=== PATIENT | female | born 1975 | race American Indian/Alaskan Native ===

== ENCOUNTER 2016-11-21 16:44 | Emergency (ER) | payer SELFPAY ==
[2016-11-21] MEDS ORDERED: CATAPRES ONE (18:24)
[2016-11-21] MEDS ORDERED: CATAPRES PO ONE (18:34)
[2016-11-21 19:32] LABS: Bilirubin,Urine NEG (Negative); Blood,Urine NEG (Negative); Ketones,Urine 20 mg/dL (Negative); Leukocyte Esterase,Urine NEG (Negative); Mucus,Urine FEW /HPF; Nitrite,Urine NEG (Negative); Protein,Urine <15 mg/dL mg/dL (Negative); Urobilinogen,Urine < 2.0 mg/dL (<2.0)
[2016-11-21 19:35] LABS: Basophils % (Auto) 1.1 % (0.0-1.8); Eosinophils % (Auto) 0.9 % (0.0-4.3); Hematocrit 38.6 % (30.3-42.9); Hemoglobin 12.9 gm/dl (10.1-14.3); Mean Corpuscular HGB Conc 34 % (30-34); Mean Corpuscular Hemoglobin 28 pg (28-32); Mean Corpuscular Volume 83 fl (79-97); Platelet Count 128 K/mm3 (140-440); Red Blood Count 4.68 M/mm3 (3.65-5.03); Red Cell Distribution Width 14.1 % (13.2-15.2); White Blood Count 7.1 K/mm3 (4.5-11.0)
[2016-11-21 19:48] LABS: INR 0.85 (0.87-1.13)
[2016-11-21 19:49] LABS: Partial Thromboplastin Time 27.2 Sec. (24.2-36.6)
[2016-11-21 19:53] LABS: Anion Gap 21 mmol/L; Blood Urea Nitrogen 15 mg/dL (7-17); Calcium 9.3 mg/dL (8.4-10.2); Carbon Dioxide 25 mmol/L (22-30); Glucose 378 mg/dL (65-100); Potassium 4.1 mmol/L (3.6-5.0); Sodium 127 mmol/L (137-145)
--- NOTE | 2016-11-21 20:29 | Cat Scan Report ---
FINAL REPORT EXAM: CT HEAD/BRAIN WO CON HISTORY: headache / htn / dizzy TECHNIQUE: CT imaging acquired through the head without intravenous contrast. Transaxial reformations are provided. PRIORS: None. FINDINGS: The ventricles, cisterns and sulci are normal. No intraparenchymal or extra-axial mass, hemorrhage, or mass effect. Wu and white-matter differentiation is normal. Normal spherical shape of the globes. Paranasal sinuses and mastoid air cells are clear. No skull or facial fracture visualized. IMPRESSION: No acute intracranial abnormality. Consider MRI follow-up as warranted.
[2016-11-22] MEDS ORDERED: NACL 0.9% 1000 ML 1,000 ML IV ONE (06:29)
--- NOTE | 2016-11-22 06:30 | Emergency Department Report ---
HPI - General Chief Complaint: High BP Time Seen by Provider: 11/22/16 06:18 - HPI HPI: Room 5 The patient is a 41-year-old female presenting with a chief complaint of hypertension, hyperglycemia and headache. Patient states since yesterday she has had a frontal headache and felt weak. Patient states she's been compliant with a blood pressure medication sensation noticed blood pressures been elevated. Patient states she was recently diagnosed with diabetes a few days ago and started on insulin by her primary doctor. Patient states she has been compliant with her medication. Location: [see above] Duration: [see above] Quality: Headache Severity: Moderate Modifying factors: [see above] Context: [see above] Mode of transportation: Unknown ED Past Medical Hx - Past Medical History Hx Hypertension: Yes Hx Diabetes: Yes - Surgical History Past Surgical History?: No - Family History Family history: no significant - Social History Smoking Status: Never Smoker Substance Use Type: None - Medications Home Medications: Home Medications Medication Instructions Recorded Confirmed Last Taken Type Atenolol [Tenormin] 25 mg PO DAILY 11/21/16 11/21/16 11/21/16 08:00 History Insulin Glargine [Lantus] 10 units SQ BID 11/21/16 11/21/16 11/21/16 09:00 History Triamter/Hctz 37.5-25 mg 1 tab PO QDAY 11/21/16 11/21/16 11/19/16 08:00 History [Maxzide-25] ED Review of Systems ROS: Stated complaint: ELEVATED SUGAR/DIZZINESS Other details as noted in HPI Comment: All other systems reviewed and negative Constitutional: weakness. denies: chills, fever Eyes: denies: eye pain, eye discharge, vision change ENT: denies: ear pain, throat pain Respiratory: denies: cough, shortness of breath, wheezing Cardiovascular: palpitations Endocrine: no symptoms reported Gastrointestinal: denies: abdominal pain, nausea, diarrhea Genitourinary: denies: urgency, dysuria, discharge Musculoskeletal: denies: back pain, joint swelling, arthralgia Skin: denies: rash, lesions Neurological: headache Psychiatric: denies: anxiety, depression Hematological/Lymphatic: denies: easy bleeding, easy bruising Physical Exam - Physical Exam Vital Signs: Vital Signs 11/21/16 11/21/16 11/21/16 18:10 18:37 20:07 Temperature 98.8 F Pulse Rate 93 H 93 H 98 H Respiratory 19 18 Rate Blood Pressure 180/122 180/122 148/106 Blood Pressure [Left] O2 Sat by Pulse 100 100 Oximetry 11/22/16 11/22/16 11/22/16 00:47 03:00 04:02 Temperature Pulse Rate 99 H 82 71 Respiratory 18 19 18 Rate Blood Pressure 150/103 174/105 Blood Pressure [Left] O2 Sat by Pulse 99 99 Oximetry 11/22/16 04:11 Temperature Pulse Rate 70 Respiratory 15 Rate Blood Pressure Blood Pressure 126/83 [Left] O2 Sat by Pulse 99 Oximetry Physical Exam: GENERAL: The patient is well-developed well-nourished female sleeping on stretcher not appearing to be in acute distress. [] HEENT: Normocephalic. Atraumatic. Extraocular motions are intact. Patient has moist mucous membranes. NECK: Supple. No meningitic signs are noted. Trachea midline CHEST/LUNGS: Clear to auscultation. There is no respiratory distress noted. HEART/CARDIOVASCULAR: Regular. There is no tachycardia. There is no gallop rub or murmur. ABDOMEN: Abdomen is soft, nontender. Patient has normal bowel sounds. There is no abdominal distention. SKIN: There is no rash. There is no edema. There is no diaphoresis. NEURO: The patient is awake, alert, and oriented. The patient is cooperative. The patient has no focal neurologic deficits. The patient has normal speech. Cranial nerves II through XII grossly intact, no drift MUSCULOSKELETAL: There is no evidence of acute injury. ED Course Vital Signs 11/21/16 11/21/16 11/21/16 18:10 18:37 20:07 Temperature 98.8 F Pulse Rate 93 H 93 H 98 H Respiratory 19 18 Rate Blood Pressure 180/122 180/122 148/106 Blood Pressure [Left] O2 Sat by Pulse 100 100 Oximetry 11/22/16 11/22/16 11/22/16 00:47 03:00 04:02 Temperature Pulse Rate 99 H 82 71 Respiratory 18 19 18 Rate Blood Pressure 150/103 174/105 Blood Pressure [Left] O2 Sat by Pulse 99 99 Oximetry 11/22/16 04:11 Temperature Pulse Rate 70 Respiratory 15 Rate Blood Pressure Blood Pressure 126/83 [Left] O2 Sat by Pulse 99 Oximetry ED Medical Decision Making - Lab Data Result diagrams: 11/21/16 19:16 11/21/16 19:16 Laboratory Tests 11/21/16 11/21/16 11/21/16 18:07 18:40 19:16 WBC 7.1 RBC 4.68 Hgb 12.9 Hct 38.6 MCV 83 MCH 28 MCHC 34 RDW 14.1 Plt Count 128 L Lymph % (Auto) 30.5 [place] % (Auto) 8.2 H Eos % (Auto) 0.9 Baso % (Auto) 1.1 Lymph # 2.1 [place] # 0.6 Eos # 0.1 Baso # 0.1 Seg Neutrophils % 59.3 Seg Neutrophils # 4.2 PT INR APTT VBG pH Sodium Potassium Chloride Carbon Dioxide Anion Gap BUN Creatinine Estimated GFR BUN/Creatinine Ratio Glucose POC Glucose 434 H Calcium Troponin T HCG, Qual Urine Color Straw Urine Turbidity Clear Urine pH 5.0 Ur Specific [place] 1.023 Urine Protein <15 mg/dl Urine Glucose (UA) >=500 Urine Ketones 20 Urine Blood Neg Urine Nitrite Neg Urine Bilirubin Neg Urine Urobilinogen < 2.0 Ur Leukocyte Esterase Neg Urine WBC (Auto) 1.0 Urine RBC (Auto) 2.0 U Epithel Cells (Auto) < 1.0 Urine Mucus Few 11/21/16 11/21/16 11/21/16 19:16 19:16 19:16 WBC RBC Hgb Hct MCV MCH MCHC RDW Plt Count Lymph % (Auto) [place] % (Auto) Eos % (Auto) Baso % (Auto) Lymph # [place] # Eos # Baso # Seg Neutrophils % Seg Neutrophils # PT 11.5 L INR 0.85 L APTT 27.2 VBG pH 7.330 Sodium 127 L Potassium 4.1 Chloride 85.0 L Carbon Dioxide 25 Anion Gap 21 BUN 15 Creatinine 1.0 Estimated GFR > 60 BUN/Creatinine Ratio 15.00 Glucose 378 H POC Glucose Calcium 9.3 Troponin T < 0.010 HCG, Qual Urine Color Urine Turbidity Urine pH Ur Specific [place] Urine Protein Urine Glucose (UA) Urine Ketones Urine Blood Urine Nitrite Urine Bilirubin Urine Urobilinogen Ur Leukocyte Esterase Urine WBC (Auto) Urine RBC (Auto) U Epithel Cells (Auto) Urine Mucus 11/21/16 11/21/16 11/22/16 19:16 21:40 00:58 WBC RBC Hgb Hct MCV MCH MCHC RDW Plt Count Lymph % (Auto) [place] % (Auto) Eos % (Auto) Baso % (Auto) Lymph # [place] # Eos # Baso # Seg Neutrophils % Seg Neutrophils # PT INR APTT VBG pH Sodium Potassium Chloride Carbon Dioxide Anion Gap BUN Creatinine Estimated GFR BUN/Creatinine Ratio Glucose POC Glucose Calcium Troponin T < 0.010 < 0.010 HCG, Qual Negative Urine Color Urine Turbidity Urine pH Ur Specific [place] Urine Protein Urine Glucose (UA) Urine Ketones Urine Blood Urine Nitrite Urine Bilirubin Urine Urobilinogen Ur Leukocyte Esterase Urine WBC (Auto) Urine RBC (Auto) U Epithel Cells (Auto) Urine Mucus 11/22/16 06:26 WBC RBC Hgb Hct MCV MCH MCHC RDW Plt Count Lymph % (Auto) [place] % (Auto) Eos % (Auto) Baso % (Auto) Lymph # [place] # Eos # Baso # Seg Neutrophils % Seg Neutrophils # PT INR APTT VBG pH Sodium Potassium Chloride Carbon Dioxide Anion Gap BUN Creatinine Estimated GFR BUN/Creatinine Ratio Glucose POC Glucose 347 H Calcium Troponin T HCG, Qual Urine Color Urine Turbidity Urine pH Ur Specific [place] Urine Protein Urine Glucose (UA) Urine Ketones Urine Blood Urine Nitrite Urine Bilirubin Urine Urobilinogen Ur Leukocyte Esterase Urine WBC (Auto) Urine RBC (Auto) U Epithel Cells (Auto) Urine Mucus - EKG Data -: EKG Interpreted by Me EKG shows normal: sinus rhythm Rate: normal - EKG Data When compared to previous EKG there are: previous EKG unavailable Interpretation: nonspecific ST-T wave audrey (T-wave inversions in leads 2, aVF, V6 ) - Radiology Data Radiology results: report reviewed (CT head), image reviewed (CT head) CT head (read by radiologist)-no acute intracranial abnormality. - Differential Diagnosis ICH, hypertension, DKA, diabetes Critical care attestation.: If time is entered above; I have spent that time in minutes in the direct care of this critically ill patient, excluding procedure time. ED Disposition Clinical Impression: Hypertension, Headache, Hyperglycemia Disposition: DISCHARGED TO HOME OR SELFCARE Is pt being admited?: No Does the pt Need Aspirin: No Condition: Stable Instructions: Hypertension (ED) Additional Instructions: Return to the emergency department immediately should you develop worsening symptoms, fever, inability to tolerate food or liquid or any other concerns. Referrals: KARISSA MAX MD [Primary Care Provider] - DANNY (You should follow up with Dr. Max as soon as possible for further evaluation/adjustment of your diabetes and hypertension medication) Time of Disposition: 08:27
[2016-11-22 08:37] VITALS: BP 124/69
[2016-11-25 23:31] LABS: B-Hydroxybutyrate 2.5 mmol/L (0.2 - 0.28)
== END 2016-11-22 08:38 | disposition home or self-care (01) ==
LOC: ED 16:44
DX: I10 Essential (primary) hypertension (principal); E11.65 Type 2 diabetes mellitus with hyperglycemia; R51 Headache
CPT/HCPCS: 36415; 70450; 80048; 81001; 82010; 82805; 82962; 84484; 84703; 85025; 85610; 85730; 93005; 93010; 96361; 96374; 96375; 99285; J7030; J1815